=== PATIENT | female | born 1995 ===

== ENCOUNTER 2017-07-11 08:26 | Emergency (ER) | payer MEDICAID ==
[2017-07-11 09:50] VITALS: BMI 27.2
--- NOTE | 2017-07-11 09:57 | OBHP ---
Datetime: 07/11/2017 09:20 IP Adm Impression: , intrauterine ; No Active Labor; Intact Membranes IP Admit Plan: Discharge home Admit Comment, IP Provider: 22yo IUP 21w ([facility]) c/o vaignal spottin after wiping. No pain. No heavy VB just after wiping. PMH: denies PSH: C/S POBH: C/S x 1 PGYNH: denies STD PSoH denies smoking ETOH drugs A: IUp at 21w no evid of VB PLAN check placenta location - sono dept called (MFM) done this past thurs check blood type - called [facility] Check UA Also, she was diagnosed with yeast infections last week at [facility] but no meds given. PE today + whi te curdy discharge...will give Terazol 7 Pelvic Type - PN: Adequate Extremities - PN: Normal Abdomen - PN: Normal Back - PN: Normal Breast - PN: Not Done Lungs - PN: Normal Heart - PN: Normal Thyroid - PN: Normal Neurologic - PN: Normal HEENT - PN: Normal General - PN: Normal FHR - Baseline A Provider: + Membranes, Provider: Intact Pool Provider: Negative IP Hx Assessment: The History has been Reviewed and is Current EGA AdmitDate IP: 21.4 IP Chief Complaint: Vaginal bleeding Dilatation, Provider: 0 Genitourinary Exam: Normal DTRs - PN: Normal
[2017-07-11 10:36] LABS: RBC URINE 3 /hpf (0-3); URINE BILIRUBIN NEGATIVE (NEGATIVE); URINE BLOOD NEGATIVE (NEGATIVE); URINE COLOR STRAW (YELLOW); URINE GLUCOSE (UA) NEG (Normal); URINE KETONE NEGATIVE (NEGATIVE); URINE LEUKOCYTE ESTERASE TRACE Leu/uL (Negative); URINE PROTEIN NEGATIVE (NEGATIVE); URINE UROBILINOGEN 0.2-1.0 mg/dL (0.2-1.0); WBC URINE 1 /hpf (0-5)
--- NOTE | 2017-07-11 11:39 | OBHP ---
Datetime: 07/11/2017 11:36 Admit Comment, IP Provider: Notiied UA neg...pt to be called by Essie Joshi..no Ab but take Teraxol
--- NOTE | 2017-07-11 11:41 | OBDCSUM ---
Datetime: 07/11/2017 09:44 Discharged to, Provider: Home Follow up at, Provider: Private PORTABLE CANTEEN OPERATOR Disch Instr Activity: Normal activity Disch Instr Diet: Regular Discharge Time: 07/11/2017 09:50 Follow up in weeks, Provider: Next scheduled appointment Disch Referrals: None Discharge Comment, Provider: Follow up [facility] this Thurs as scheduled Discharge Diagnosis Prov Other: No VB
[2017-07-11 15:38] VITALS: BP 96/64; PULSE 82; RESP 20; TEMP 98.2; O2SAT 99
== END 2017-07-11 09:47 | disposition home or self-care (01) ==
LOC: H.EROB2 08:26 → H.EROB 08:26 → H.EROB2 09:47
DX: O47.02 False labor before 37 completed weeks of gestation, second trimester (principal); Z3A.21 21 weeks gestation of pregnancy

== ENCOUNTER 2017-09-28 14:33 | Emergency (ER) | payer MEDICAID ==
[2017-09-28 15:29] VITALS: BMI 28.8
[2017-09-28 17:01] LABS: RBC URINE 2 /hpf (0-3); URINE BACTERIA OCC (<OCC); URINE BILIRUBIN NEGATIVE (NEGATIVE); URINE BLOOD NEGATIVE (NEGATIVE); URINE COLOR YELLOW (YELLOW); URINE GLUCOSE (UA) NEG (Normal); URINE KETONE TRACE mg/dL (NEGATIVE); URINE LEUKOCYTE ESTERASE TRACE Leu/uL (Negative); URINE PROTEIN 30 mg/dL (NEGATIVE); URINE UROBILINOGEN 0.2-1.0 mg/dL (0.2-1.0); WBC URINE 4 /hpf (0-5)
--- NOTE | 2017-09-29 16:35 | OBHP ---
Datetime: 09/28/2017 16:01 IP Adm Impression: , intrauterine ; No Active Labor; Intact Membranes IP Chief Complaint Other: right sided pain IP Admit Plan: Observation/Evaluation Admit Comment, IP Provider: IUP 32w right sided abd pain radiating to right arm/fingers. So metimes it also radates to right leg/foot. No SROM. no VB. +FM No N/V/D...No F/U/D P{NC: [facility] undocumented PMH: demeis PSH: C/S NKA POBGYNH: - topx2/section x 1 no STD PSoH: denies smoking ETOH drugs A: IUp at 32w righ sided abd pain PLAN: Check US/FFN Extremities - PN: Normal Abdomen - PN: Normal HEENT - PN: Normal General - PN: Normal FHR - Baseline A Provider: 120 Membranes, Provider: Intact Pool Provider: Negative EGA AdmitDate IP: 32.6 Vital Signs Provider: Reviewed; Within Normal Limits IP Chief Complaint: Maternal discomfort NICHD Variability Prov Fetus A: Moderate 6-25bpm NICHD Accel Fetus A IP Provider: 15X15 FHR Category Provider Fetus A: Category I NICHD Decel Fetus A IP Provider: None Dilatation, Provider: 0 Effacement, Provider: 0
--- NOTE | 2017-09-29 16:35 | OBDCSUM ---
Datetime: 09/28/2017 17:10 Discharge Comment, Provider: EAGLE mcneil UA neg Discharge Diagnosis Prov Other: Abd pain 32w
[2017-09-29 20:35] VITALS: BP 110/65; PULSE 68; RESP 18; TEMP 98.2; O2SAT 99
== END 2017-09-28 17:10 | disposition home or self-care (01) ==
LOC: H.EROB2 14:33
DX: O26.93 Pregnancy related conditions, unspecified, third trimester (principal); R10.2 Pelvic and perineal pain; Z3A.32 32 weeks gestation of pregnancy; Z87.59 Personal history of other complications of pregnancy, childbirth and the puerperium

== ENCOUNTER 2017-10-25 07:55 | Inpatient (IN) | payer MEDICAID ==
[2017-10-25 08:00] VITALS: BMI 29.2
[2017-10-25] MEDS ORDERED: Lactated Ringer's 1,000 ML IV SCH (08:15)
[2017-10-25] MEDS ORDERED: AMPicillin 1 GM in Sodium Chloride 0.9% 100 ML IVPB SCH (08:15)
[2017-10-25] MEDS ORDERED: ceFAZolin 1 GM in Sodium Chloride 0.9% 100 ML IVPB ONE (08:30)
[2017-10-25] MEDS: Lactated Ringer's 1,000 ML IV SCH ×2 (09:00→18:17)
[2017-10-25] MEDS: Oxytocin 30 UNITS in Sodium Chloride 0.9% 500 ML IV SCH ×3 (09:26→11:05)
[2017-10-25 09:28] VITALS: RESP 18; O2SAT 99
[2017-10-25 09:35] LABS: BASO % 0.3 % (0.0-2.0); EOS # 0.1 K/uL (0.0-0.7); HEMOGLOBIN 8.8 g/dL (12.0-16.0); LYMPH # 2.3 K/uL (1.0-4.3); LYMPH % 26.5 % (20.0-40.0); MEAN CELL VOLUME 76.8 fl (81.0-99.0); MEAN CORPUSCULAR HEMOGLOBIN 24.9 pg (27.0-31.0); MEAN CORPUSCULAR HGB CONC 32.4 g/dL (33.0-37.0); MEAN PLATELET VOLUME 9.4 fl (7.2-11.7); MONO # 0.5 K/uL (0.0-0.8); MONO % 5.9 % (0.0-10.0); NEUT # 5.8 K/uL (1.8-7.0); NEUT % 66.3 % (50.0-75.0); NRBC % 0.2 % (0.0-0.0); RBC 3.55 Mil/uL (3.80-5.20); RED CELL DISTRIBUTION WIDTH 15.6 % (11.5-14.5); WHITE BLOOD COUNT 8.7 K/uL (4.8-10.8)
[2017-10-25] MEDS ORDERED: Morphine 1 mg/ml preservative-free Inj(Duramorph) ONE (10:27)
[2017-10-25] MEDS ORDERED: ePHEDrine 50 mg/ml Inj ONE (10:27)
--- NOTE | 2017-10-25 10:33 | OBADHP ---
Datetime: 10/25/2017 08:30 Admit Comment, IP Provider: 22 yo with ega 36.5 presents for repeat c/s. On last evalu ation: IUGR, 2 vessel cord. +: fm Denies: vb, lof, ctx, cp/sob/n/v/dysuria pnc: [facility] Dr. Walls obhx: c/s x1 2/2 meconium and maternal fever. sab x2 gyne: denies hx of sti; pap neg medhx: none; asthma as a child: resloved famhx: dm surg: c/s soc: denies smoking, alcohol, illicit drugs rx: iron nkda pe: gen: aaox3 cardiac: s1s2 no murmurs lungs: clear bilaterally no wheezing abdo: gravid; non tender, active bowel sounds negative: calf tenderness; cvt 22 yo iup 36.5 -iugr, 2 vessel cord -admit for repeat c/s -labs: cbc, ts, hiv, rpr, lr, ancef 1 g GBs pos, O+ ab neg; hiv neg; rpr neg; gc/c neg; rubella: im; hbsag neg case dw Dr. Cody Aleman MD PGY1 OB Hospitalist Oct 24 - rec'd call from [facility] and told that her baby was IUGR at 36w and sent for id mundo. Condition/procedure discussed with pt. Informed consent obtained...MAHNDO Pelvic Type - PN: Adequate Extremities - PN: Normal Abdomen - PN: Normal Back - PN: Normal Breast - PN: Not Done Lungs - PN: Normal Heart - PN: Normal Thyroid - PN: Not Done Neurologic - PN: Normal HEENT - PN: Normal General - PN: Normal FHR - Baseline A Provider: 120 Membranes, Provider: Intact Pool Provider: Negative Vital Signs Provider: Reviewed; Within Normal Limits NICHD Variability Prov Fetus A: Moderate 6-25bpm NICHD Accel Fetus A IP Provider: 15X15 FHR Category Provider Fetus A: Category I NICHD Decel Fetus A IP Provider: None Dilatation, Provider: 0 Effacement, Provider: 0 Genitourinary Exam: Normal DTRs - PN: Not Done EGA AdmitDate IP: 36.5 IP Admit Plan: Admit to unit; Initiate Section protocol Datetime: 10/25/2017 08:00 Presentation-Admit: Vertex IP Hx Assessment: The History has been Reviewed and is Current IP Chief Complaint: Other IP Adm Impression: , intrauterine ; No Active Labor; Intact Membranes Datetime: 09/28/2017 16:01 IP Chief Complaint Other: right sided pain
[2017-10-25] MEDS ORDERED: Cellulose Hemostat 2X3 Sheet ONE (11:15)
[2017-10-25] MEDS ORDERED: Oxycodone/Acetaminophen 5/325 mg Tab PO PRN (11:39)
--- NOTE | 2017-10-25 11:57 | OBDS ---
DELIVERY PERSONNEL Delivery Doctor: Ana Ross DO Scrub Nurse: Kallie Orr Material Hauler: Jw Arroyo RN Anesthesiologist: aJnet MATERNAL INFORMATION Delivery Anesthesia: Spinal Medications in Delivery: Pitocin Estimated Blood Loss (ml): 800 Placenta Cultured: No Provider Comments: Pre Op Dx: IUP at 36w; previous C/S x 1 IUGR Post Op Dx same and pelvic adhesions Procedure: Repeat LTCS via previous scar Surgeon: Dr Cody Aleman Anest: Dr Gonzales Anest: spinal Findings: live infant deliveed from [facility] presentation clear AF one loose nuchal cord Placenta delivered intact manually pelvic adhesions Ovaries and tubes WNL grossly She remained stable EBL 800cc Dict# [id number] LABOR SUMMARY EDC: 11/17/2017 00:00 No. Babies in Womb: 1 LABOR INFORMATION Group B Beta Strep: Positive STAGES OF LABOR Stage 3 hrs: 0 Stage 3 min: 1 CSECTION DELIVERY Primary Indication: Other Other Primary Indication: IUGR Secondary Indication: Repeat Elective CSection Urgency: Elective CSection Incidence: Repeat Labor: No Labor Uterine Closure: Double-layer closure BABY A INFORMATION Delivery Date/Time: 10/25/2017 11:03 Method of Delivery: Born in Route : No : N/A Forceps: N/A Vacuum Extraction: N/A Shoulder Dystocia : No SHOULDER DYSTOCIA BABY A Delivery Date/Time: 10/25/2017 11:03 PRESENTATION/POSITION BABY A Presentation: Cephalic PLACENTA INFORMATION BABY A Placenta Delivery Time : 10/25/2017 11:04 Placenta Method of Delivery: Manual Removal Placenta Status: Delivered SCORES BABY A Heart Rate 1 min: >100 bpm Resp Effort 1 min: Good Cry Reflex Irritability 1 min: Cough or Sneeze or Pulls Away Muscle Tone 1 min: Active Motion Color 1 min: Body Duarte, Extremities Blue SCORE 1 MIN: 9 Heart Rate 5 min: >100 bpm Resp Effort 5 min: Good Cry Reflex Irritability 5 min: Cough or Sneeze or Pulls Away Muscle Tone 5 min: Active Motion Color 5 min: Body Duarte, Extremities Blue SCORE 5 MIN: 9 INFANT INFORMATION BABY A Gestational Age at Delivery: 36.5 Gestational Status: Outcome : Liveborn Condition : Stable Infant Sex: Female IDENTIFICATION/MEDS BABY A ID Band Number: [id number] ID Band Location: Left Leg; Left Arm WEIGHT/LENGTH BABY A Birthweight (gms): 2090 Infant Weight (lb): 4 Infant Weight (oz): 10 CORD INFORMATION BABY A No. Cord Vessels: 2 Nuchal Cord : Around Neck x1, Loose Cord Blood Taken: Yes Infant Suction: Mouth ASSESSMENT BABY A Complications: None Physical Findings Other: 2 vessel cord Care By: Tae Park Transferred To: Nursery
[2017-10-25] MEDS ORDERED: Morphine 1 mg/ml preservative-free Inj(Duramorph) IT ONE (13:53)
[2017-10-25] MEDS ORDERED: DiphenhydrAMINE 50 mg/ml Inj IVP PRN (15:03)
[2017-10-25] MEDS: Simethicone 80 mg Chewtab PO SCH ×2 (16:41→22:49)
[2017-10-26] MEDS: Lactated Ringer's 1,000 ML IV SCH (02:21)
[2017-10-26] MEDS: Simethicone 80 mg Chewtab PO SCH ×4 (04:48→22:01)
[2017-10-26 06:55] LABS: HEMOGLOBIN 7.3 g/dL (12.0-16.0); MEAN CELL VOLUME 75.9 fl (81.0-99.0); MEAN CORPUSCULAR HEMOGLOBIN 24.7 pg (27.0-31.0); MEAN CORPUSCULAR HGB CONC 32.6 g/dL (33.0-37.0); RBC 2.96 Mil/uL (3.80-5.20); WHITE BLOOD COUNT 11.2 K/uL (4.8-10.8)
--- NOTE | 2017-10-26 08:57 | OP ---
PROCEDURE DATE: 10/25/17 PREOPERATIVE DIAGNOSES: Intrauterine at 36 weeks' gestation, previous section x1, intrauterine growth restriction. POSTOPERATIVE DIAGNOSES: Intrauterine at 36 weeks' gestation, previous section x1, intrauterine growth restriction, pelvic adhesions. SURGERY: Repeat low-transverse section via previous Pfannenstiel incision. SURGEON: Saul Ross DO. DYED YARN OPERATOR: Alcides White MD (Dr. White is the on-call physician who was available for assistance on this case. His presence was vital and necessary for the procedure. He was there from time of incision to the delivery of the infant to the closure of the skin). Dr. Aleman, PGY-1. TYPE OF ANESTHESIA: Spinal. ANESTHESIA ADMINISTERED BY: Dr. Gonzales. FINDINGS: Live infant delivered from a cephalic presentation, clear amniotic fluid, one loose nuchal cord noted. Placenta was delivered intact manually. Pelvic adhesions. Ovaries and tubes appeared to be within normal limits grossly. She remained hemodynamically stable throughout the procedure. ESTIMATED BLOOD LOSS: 800 mL. DESCRIPTION OF PROCEDURE: Sheila was brought to the operating room. Spinal anesthesia was given by Dr. Gonzales. She was then placed in supine position. Compression boots were placed on both lower extremities. Palmer catheter was placed in the bladder, draining clear urine. She was then draped and prepped in the usual sterile manner. Once adequate anesthesia was obtained, an incision was made on the skin using a scalpel and previous surgical scar was removed. Incision was then taken down to underlying fascia using electrocautery. Fascia was nicked in the midline and then incision was then extended bilaterally using electrocautery. The inferior aspect of the fascia was grasped using 2 Mitch clamps and tented up and the rectus muscle was both bluntly and sharply dissected. The same was done with the superior aspect of the fascia. In the midline superiorly, we were able to separate the rectus muscle bluntly and noted that we were within the peritoneal cavity. Extensive pelvic adhesions were noted on the right side of the rectus muscle underneath. We created a bladder flap by incising peritoneum and the uterus and then extending using Metzenbaum scissors. Bladder blade was then inserted behind the bladder flap. A low transverse incision was made using a scalpel upon entering the uterus and incision was then extended bilaterally using bluntly. Clear amniotic fluid was noted. The infant was then delivered as atraumatically as possible. First, the head of the infant was delivered. One loose nuchal cord was noted and reduced successfully. The remainder of the was then delivered as atraumatically as possible. Cord was clamped and cut. Infant was handed to the building services supervisor in attendance. Uterus was exteriorized. Extensive pelvic adhesion was noted along the right side of the uterus along the rectus muscle. Uterus was cleared off debris and clots. Both ovaries and tubes appeared to be within normal limits. Lower uterine segment was grasped using T clamps and Allis clamps and closed using an 0 Vicryl suture in an interlocking fashion. Second layer of the uterus was closed using 0 Vicryl suture, imbricating the first layer. Irrigation was performed of posterior cul-de-sac. Uterus was placed back into peritoneal cavity. Irrigation was performed, hemostasis was assured. Surgicel was placed along the uterine incision. An 0 Vicryl suture was used to approximate the rectus muscles x3. Using 0-Vicryl suture, hemostasis had been assured, 0 Vicryl suture was used to approximate the fascial layer in a running fashion. Irrigation was performed. Hemostasis was assured in subcuticular layer. A 3-0 Vicryl suture was used to approximate the skin. Dermabond, Steri-Strips and a pressure bandage were applied. All equipments, sponges and needles accounted for. She was transferred to the recovery room in stable condition. All equipments, sponges, needles accounted for. Saul Ross DO
[2017-10-27] MEDS: Simethicone 80 mg Chewtab PO SCH ×4 (07:37→21:50)
--- NOTE | 2017-10-27 11:24 | OBPPN ---
Datetime: 10/27/2017 06:26 PP Pain Prov: Within normal limits PP Nausea Prov: Denies PP Flatus Prov: Yes PP BM Prov: No PP Breasts Prov: Not Done PP Heart Prov: Normal PP Lungs Prov: Normal PP Abdomen/Uterus Prov: Normal PP Lochia Prov: Normal PP Vulva/Perineum Prov: Not Done PP CVA Tenderness Prov: Not Done PP Extremities Prov: Normal PP C/S Incision Prov: Normal PP Progress Prov: Normal PP Impression Prov: Normal progression PP Plan Prov: Continue present management PP Progress Note Prov: 22 yo s/p . Pt. is seen and examined at bedside this morning . No overnight events. Pt reports mild abdominal pain, but well controlled with pain meds. Tolerating PO well. and formula without difficulty. Lochia is similar to menses volume. No BM but passing gas per rectum. Denies fever/chills, diarrhea, nausea/vomiting, chest pain, dyspnea, and diz ziness. VS: stable GEN: NAD Cardio: s1s2, no m/r/g Resp: clear breath sounds b/l Abdomen: BS+, tenderness to palpation. Incision clean, intact, no erythema, exudates or dehiscence . Uterus is firm and at the level of the umbilicus. EXT: No edema, calves nontender NEURO/PSYCHI: AAOx3, no grossly focal deficit, preserved affect and mood. A/P: 22 yo s/p . Pt remains afebrile, tolerating pain with medication, doing well on POD 2. OOB with caution SCDs for DVT prophylaxis, encouraged ambulating Percocet 5/325mg, and Ibuprofen 600mg for pain. Colace 100mg PO BID for constipation Iron 325 BID for anemia Encourage . PP CBC: 7.3/22.5 Tdap before d/c Anticipated d/c: 10/28/17 YBecerra PGY1 IP PP Procedures: None Vital Signs Provider PP: Reviewed
[2017-10-28] MEDS: Simethicone 80 mg Chewtab PO SCH ×2 (04:12→08:27)
[2017-10-28 07:08] LABS: BASO % 0.3 % (0.0-2.0); EOS # 0.2 K/uL (0.0-0.7); EOS % 2.5 % (0.0-4.0); HEMOGLOBIN 6.8 g/dL (12.0-16.0); LYMPH # 2.4 K/uL (1.0-4.3); LYMPH % 26.8 % (20.0-40.0); MEAN CELL VOLUME 76.8 fl (81.0-99.0); MEAN CORPUSCULAR HEMOGLOBIN 24.6 pg (27.0-31.0); MEAN PLATELET VOLUME 8.5 fl (7.2-11.7); MONO # 0.5 K/uL (0.0-0.8); MONO % 5.9 % (0.0-10.0); NEUT # 5.8 K/uL (1.8-7.0); NEUT % 64.5 % (50.0-75.0); NRBC % 0.1 % (0.0-0.0); RBC 2.77 Mil/uL (3.80-5.20); RED CELL DISTRIBUTION WIDTH 16.4 % (11.5-14.5)
[2017-10-28 18:40] VITALS: BP 115/64; PULSE 86; TEMP 98.6
--- NOTE | 2017-10-28 23:03 | OBPPN ---
Datetime: 10/28/2017 06:14 PP Pain Prov: Within normal limits PP Nausea Prov: Denies PP Flatus Prov: Yes PP BM Prov: Yes PP Breasts Prov: Not Done PP Heart Prov: Normal PP Lungs Prov: Normal PP Abdomen/Uterus Prov: Normal PP Lochia Prov: Normal PP Vulva/Perineum Prov: Not Done PP CVA Tenderness Prov: Not Done PP Extremities Prov: Normal PP C/S Incision Prov: Normal PP Progress Prov: Normal PP Impression Prov: Normal progression PP Plan Prov: Discharge PP Progress Note Prov: 22 yo s/p . Pt. is seen and examined at bedside this morning . No overnight events. Pt reports mild abdominal pain, but well controlled with pain meds. Tolerating PO well. and formula without difficulty. Lochia is similar to menses volume. + BM. Den ies fever/chills, diarrhea, nausea/vomiting, chest pain, dyspnea, and dizziness. Patient refuses PRBC and signed AMA. VS: stable GEN: NAD Cardio: s1s2, no m/r/g Resp: clear breath sounds b/l Abdomen: BS+, tenderness to palpation. Incision clean, intact, no erythema, exudates or dehiscence . Uterus is firm and at the level of the umbilicus. EXT: No edema, calves nontender NEURO/PSYCHI: AAOx3, no grossly focal deficit, preserved affect and mood. A/P: 22 yo s/p . Pt remains afebrile, tolerating pain with medication, doing well on POD 3. OOB with caution SCDs for DVT prophylaxis, encouraged ambulating Percocet 5/325mg, and Ibuprofen 600mg for pain. Colace 100mg PO BID for constipation Iron 325mg BID for anemia Encourage . PP CBC: 7.3/22.5 Tdap before d/c Discharge today. YBecerra PGY1 Pt was discussed with the resident and I agree with the above. IP PP Procedures: None Vital Signs Provider PP: Reviewed
--- NOTE | 2017-10-28 23:06 | OBDCSUM ---
Datetime: 10/28/2017 06:17 Discharge Diagnosis, Provider: Delivery Discharge Time: 10/28/2017 11:06
== END 2017-10-28 11:07 | disposition home or self-care (01) | DRG 371 ==
LOC: H.L&D 08:04 → H.OB/GYN 14:15
PROVIDERS: ADMIT Obstetrics & Gynecology; ATTEND Obstetrics & Gynecology
PROC: 10D00Z1 Extraction of Products of Conception, Low, Open Approach (ICD-10-PCS; principal; 2017-10-25)
PROC: 4A1HXCZ Monitoring of Products of Conception, Cardiac Rate, External Approach (ICD-10-PCS; 2017-10-25)
DX: O34.211 Maternal care for low transverse scar from previous cesarean delivery (principal); O60.14X0 Preterm labor third trimester with preterm delivery third trimester, not applicable or unspecified; Z37.0 Single live birth; N85.8 Other specified noninflammatory disorders of uterus; Z3A.36 36 weeks gestation of pregnancy; O69.81X0 Labor and delivery complicated by cord around neck, without compression, not applicable or unspecified; O36.5930 Maternal care for other known or suspected poor fetal growth, third trimester, not applicable or unspecified; O99.89 Other specified diseases and conditions complicating pregnancy, childbirth and the puerperium; N73.6 Female pelvic peritoneal adhesions (postinfective); K59.00 Constipation, unspecified